=== PATIENT | female | born 1965 | race Caucasian/White ===

== ENCOUNTER 2017-01-15 09:58 | Emergency (ER) | payer BC, OTHER ==
[~2017-01-15] VITALS: Ht 167.6 cm; Wt 73.0 kg
[2017-01-15 10:00] VITALS: TEMP 36.9; Ht 167.6 cm; Wt 73.0 kg
--- NOTE | 2017-01-15 10:52 | DIAGNOSTIC IMAGING REPORT ---
CT SCAN OF THE CERVICAL SPINE CLINICAL HISTORY: Fall with neck pain. COMPARISON STUDY: No priors. TECHNIQUE: CT scan of the cervical spine is performed from the skull base to the upper thoracic spine. Images are reviewed in the axial, sagittal, and coronal planes. IV contrast was not administered for this examination. A dose lowering technique was utilized adhering to the principles of ALARA. CT DOSE: 325.48 mGy.cm FINDINGS: Skeletal structures: The skeletal structures are osteopenic. There is no evidence of fracture or subluxation involving the cervical spine. Vertebral body height and alignment are maintained. Anterior osteophytes are seen throughout. The odontoid process and lateral masses are intact. The atlantoaxial articulation is preserved noting productive degenerative change. The spinous processes appear intact. Degenerative endplate sclerosis is present at C4-C5, C5-C6, and C7-T1. There is mild facet arthropathy seen at several levels. Intervertebral discs: Mild disc space narrowing is seen at all levels. Central canal: Small posterior disc osteophyte complexes at C4-C5, C5-C6, C6-C7, and C7-T1 likely contribute to mild multilevel acquired compromise of the central canal. Soft tissues: The prevertebral and paraspinous soft tissues are within normal limits. Calvarium: The visualized calvarium at the skull base appears intact. Brain parenchyma: Partially visualized brain parenchyma the skull base is within normal limits. Sinuses and mastoids: The visualized paranasal sinuses are clear. The mastoid air cells are well pneumatized. Lung apices: Clear as visualized. IMPRESSION: 1. There is no evidence of fracture or subluxation involving the cervical spine. 2. Osteopenia and spondylotic change as above. Electronically signed by: Atul Blackwood M.D. 01/15/2017 10:51 AM Dictated Date/Time: 01/15/2017 10:48 AM
[2017-01-15] MEDS ORDERED: ACETAMINOPHEN 500 MG TAB PO STA (11:00)
--- NOTE | 2017-01-15 11:33 | DIAGNOSTIC IMAGING REPORT ---
LEFT FEMUR 3 VIEWS CLINICAL HISTORY: Left leg pain. Recent fall. FINDINGS: AP, frog-leg, and lateral views of the left femur are obtained. No prior studies are available for comparison at the time of dictation. The skeletal structures are well mineralized. There is no radiographic evidence of left femoral fracture. The visualized left hemipelvis appears intact. The knee and ankle joints appear maintained. The overlying soft tissues are within normal limits. IMPRESSION: Unremarkable radiographic assessment of the left femur. Electronically signed by: Atul Blackwood M.D. 01/15/2017 11:32 AM Dictated Date/Time: 01/15/2017 11:31 AM
--- NOTE | 2017-01-15 11:33 | DIAGNOSTIC IMAGING REPORT ---
LEFT KNEE 3 VIEWS CLINICAL HISTORY: l knee pain pain COMPARISON: None. DISCUSSION: The bones and joint spaces appear intact. There is no evidence of fracture, dislocation or bony disease. There is no evidence for soft tissue swelling. IMPRESSION: Negative study. The above report was generated using voice recognition software. It may contain grammatical, syntax or spelling errors. Electronically signed by: Keith Lester M.D. 01/15/2017 11:32 AM Dictated Date/Time: 01/15/2017 11:32 AM
--- NOTE | 2017-01-15 11:35 | DIAGNOSTIC IMAGING REPORT ---
PELVIS 1 OR 2 VIEW ROUTINE CLINICAL HISTORY: l hip pain pain COMPARISON: None. DISCUSSION: The bones and joint spaces appear intact. There is no evidence of fracture, dislocation or bony disease. There is no evidence for soft tissue swelling. Mild degenerative change hips bilaterally IMPRESSION: Mild degenerative change. No acute process. The above report was generated using voice recognition software. It may contain grammatical, syntax or spelling errors. Electronically signed by: Keith Lester M.D. 01/15/2017 11:34 AM Dictated Date/Time: 01/15/2017 11:32 AM
[2017-01-15 12:05] VITALS: BP 156/94; PULSE 66; O2SAT 100
--- NOTE | 2017-01-15 15:51 | EMERGENCY ROOM VISIT NOTE ---
History Report prepared by Ana: Sil Noel Under the Supervision of: Dr. Demetrius Alegria D.O. First contact with patient: 10:05 Chief Complaint: KNEEPAIN Stated Complaint: PAIN ON LEFT KNEE, HIP AND BACK SIDE History of Present Illness The patient is a 51 year old female who presents to the Emergency Room with complaints of worsening left knee pain that started yesterday. The patient states that she was walking in the grocery store when she slipped on a puddle of liquid on the floor. She states that her left knee started to become painful after she fell. She did not experience LOC but she does not remember exactly what happened because it happened so quickly. The patient has experienced minimal relief of her left knee pain with ice and elevation. Today, she started to experience right shoulder pain, left hip pain, and left-sided lower back pain. The patient is in the area visiting her daughter who is a PhD student at [employer]. Source of History: patient Onset: yesterday Position: knee (left) Quality: other (left knee pain) Timing: worsening Associated Symptoms: + back pain (left-sided, lower), No LOC Note: right shoulder pain, left hip pain Review of Systems See HPI for pertinent positives & negatives. A total of 10 systems reviewed and were otherwise negative. Past Medical & Surgical Medical Problems: (1) No pertinent past medical history Family History No pertinent family history Social History Smoking Status: Never Smoker Marital Status: Current/Historical Medications No Active Prescriptions or Reported Meds Allergies Coded Allergies: No Known Allergies (Unverified , 01/15/17) Physical Exam Vital Signs Date Time Temp Pulse Resp B/P (MAP) Pulse Ox O2 Delivery O2 Flow Rate FiO2 01/15/17 12:05 66 16 156/94 100 01/15/17 10:00 36.9 98 18 152/91 100 Room Air Physical Exam GENERAL: alert, well appearing, well nourished, no distress, non-toxic HEAD: normal cephalic, atraumatic EYE EXAM: normal conjunctiva, PERRL and EOM's grossly intact OROPHARYNX: no exudate, no erythema, lips, buccal mucosa, and tongue normal and mucous membranes are moist EARS: TMs clear b/l NECK: supple, no nuchal rigidity, no adenopathy, non-tender CHEST: stable to compression anteriorly and posteriorly LUNGS: clear to auscultation. Normal chest wall mechanics HEART: no murmurs, S1 normal and S2 normal ABDOMEN: abdomen soft, non-tender, normo-active bowel sounds, no masses, no rebound or guarding. PELVIS: stable to compression anteriorly and posteriorly with minimal tenderness of the anterior and posterior left pelvic ring. BACK: Back is symmetrical on inspection and there is no deformity, no midline tenderness, no CVA tenderness. UPPER EXTREMITIES: full active and passive range of motion of all joints without tenderness to palpation LOWER EXTREMITIES: full active and passive range of motion of all joints with minimal tenderness to palpation of the left hip and left knee. NEURO EXAM: Normal sensorium, cranial nerves II-XII grossly intact, normal speech, no gross weakness of arms, no gross weakness of legs. GCS: 15. Medical Decision & Procedures ER Provider Diagnostic Interpretation: Radiology results as stated below per my review and the radiologist's interpretation: PELVIS 1 OR 2 VIEW ROUTINE DISCUSSION: The bones and joint spaces appear intact. There is no evidence of fracture, dislocation or bony disease. There is no evidence for soft tissue swelling. Mild degenerative change hips bilaterally IMPRESSION: Mild degenerative change. No acute process. The above report was generated using voice recognition software. It may contain grammatical, syntax or spelling errors. Electronically signed by: Keith Lester M.D. 01/15/2017 11:34 AM Dictated Date/Time: 01/15/2017 11:32 AM LEFT FEMUR 3 VIEWS FINDINGS: AP, frog-leg, and lateral views of the left femur are obtained. No prior studies are available for comparison at the time of dictation. The skeletal structures are well mineralized. There is no radiographic evidence of left femoral fracture. The visualized left hemipelvis appears intact. The knee and ankle joints appear maintained. The overlying soft tissues are within normal limits. IMPRESSION: Unremarkable radiographic assessment of the left femur. Electronically signed by: Atul Blackwood M.D. 01/15/2017 11:32 AM Dictated Date/Time: 01/15/2017 11:31 AM LEFT KNEE 3 VIEWS DISCUSSION: The bones and joint spaces appear intact. There is no evidence of fracture, dislocation or bony disease. There is no evidence for soft tissue swelling. IMPRESSION: Negative study. The above report was generated using voice recognition software. It may contain grammatical, syntax or spelling errors. Electronically signed by: Keith Lester M.D. 01/15/2017 11:32 AM Dictated Date/Time: 01/15/2017 11:[address] SCAN OF THE CERVICAL SPINE FINDINGS: Skeletal structures: The skeletal structures are osteopenic. There is no evidence of fracture or subluxation involving the cervical spine. Vertebral body height and alignment are maintained. Anterior osteophytes are seen throughout. The odontoid process and lateral masses are intact. The atlantoaxial articulation is preserved noting productive degenerative change. The spinous processes appear intact. Degenerative endplate sclerosis is present at C4-C5, C5-C6, and C7-T1. There is mild facet arthropathy seen at several levels. Intervertebral discs: Mild disc space narrowing is seen at all levels. Central canal: Small posterior disc osteophyte complexes at C4-C5, C5-C6, C6-C7, and C7-T1 likely contribute to mild multilevel acquired compromise of the central canal. Soft tissues: The prevertebral and paraspinous soft tissues are within normal limits. Calvarium: The visualized calvarium at the skull base appears intact. Brain parenchyma: Partially visualized brain parenchyma the skull base is within normal limits. Sinuses and mastoids: The visualized paranasal sinuses are clear. The mastoid air cells are well pneumatized. Lung apices: Clear as visualized. IMPRESSION: 1. There is no evidence of fracture or subluxation involving the cervical spine. 2. Osteopenia and spondylotic change as above. Electronically signed by: Atul Blackwood M.D. 01/15/2017 10:51 AM Dictated Date/Time: 01/15/2017 10:48 AM Medications Administered Medications (Trade) Dose Ordered Sig/Immanuel Route Start Time Stop Time Status Last Admin Dose Admin Acetaminophen (Tylenol Tab) 1,000 mg NOW STAT PO 01/15/17 11:00 01/15/17 11:01 DC 01/15/17 11:26 1,000 MG ED Course ED COURSE: Vital signs were reviewed and showed hypertension. The patients medical record was reviewed The above diagnostic studies were performed and reviewed. ED treatments and interventions as stated above. 1010: The patient was evaluated in room B6. A complete history and physical examination was performed. 1100: Ordered Tylenol Tab 1000 mg PO 1155: Upon reevaluation, the patient is doing well. I discussed my findings with the patient and she understands and agrees with the treatment plan. Based on the patients age, coexisting illnesses, exam and lab findings the decision to treat as an outpatient was made. The patient remained stable while under my care. The patient appeared well at the time of discharge. Medical Decision Differential diagnoses include major intracranial, cervical, spinal, thoracic, abdominal, pelvic and neurologic injury. Fracture, contusion, sprain, strain, laceration, abrasions included as well. Patient is a 51-year-old female who presents the ER following a fall yesterday. She notes that she fell onto her left side. She denies loss consciousness. No blood thinners. She has completely neurologically intact. She has minimal tenderness in her left hip and knee. Shows complains of mild neck pain on my exam which was mainly paraspinal. CT of her neck was negative. No headache. Full range of motion left knee and hip. X-rays were negative. Favor pain is likely secondary to contusions although no bruising seen. No swelling. She complained of mild tenderness in right shoulder although she has full active and passive range of motion. Patient was updated regards to findings. She was given Tylenol. She was discharged follow-up with PCP. Discussed with Pt concerning signs and symptoms to watch out for. Pt was instructed to follow up with their PCP and discussed with the patient their option to return to the ED at anytime for persistent or worsening symptoms. The appropriate anticipatory guidance and out-patient management, including indications for return to the emergency department, were explained at length to the patient and understood. Head Trauma GCS Score: 15 Medication Reconcilliation Current Medication List: was personally reviewed by me Blood Pressure Screening Patient's blood pressure: Elevated blood pressure Blood pressure disposition: Elevated BP felt to be situational Impression Primary Impression: Left hip pain Additional Impressions: Neck strain Knee sprain Scribe Attestation The scribe's documentation has been prepared under my direction and personally reviewed by me in its entirety. I confirm that the note above accurately reflects all work, treatment, procedures, and medical decision making performed by me. Departure Information Dispostion Home / Self-Care Prescriptions No Active Prescriptions or Reported Meds Referrals No Doctor, Assigned (PCP) Forms HOME CARE DOCUMENTATION FORM, IMPORTANT VISIT INFORMATION Patient Instructions ED Sprain Knee, My [facility], Neck Strain - [facility] Additional Instructions Please follow up with your primary care doctor or if you are a student, [facility] with in the next 24 hours. Any worsening of your symptoms, please return to the ED immediately. This includes any fevers greater than 100.4, worsening pain, chest pain, shortness breath, weakness or numbness in your arms or legs, blood in urine, or any other concerning signs or symptoms from your standpoint. Please return or follow-up with primary care doctor for repeat x-rays you continue to have pain over the next 4-5 days. Please take Motrin or Tylenol as needed for pain. Problem Qualifiers Additional Impressions: Neck strain Encounter type: initial encounter Qualified Codes: S16.1XXA - Strain of muscle, fascia and tendon at neck level, initial encounter Knee sprain Encounter type: initial encounter Involved ligament of knee: unspecified ligament Laterality: left Qualified Codes: S83.92XA - Sprain of unspecified site of left knee, initial encounter
== END 2017-01-15 12:06 | disposition home or self-care (01) ==
LOC: C.EDB 10:01
DX: M25.552 Pain in left hip (principal); S16.1XXA Strain of muscle, fascia and tendon at neck level, initial encounter; S83.92XA Sprain of unspecified site of left knee, initial encounter; W01.0XXA Fall on same level from slipping, tripping and stumbling without subsequent striking against object, initial encounter